=== PATIENT | male | born 1975 | race African-American/Black ===

== ENCOUNTER 2020-01-03 08:34 | Outpatient (REF) | payer OTHER, SELFPAY ==
[2020-01-03 15:09] LABS: Prostate Specific Antigen 2.33 ng/mL (<0.05-4.0)
== END 2020-01-03 08:35 | disposition home or self-care (01) ==
LOC: HO.10HDL 08:34
PROVIDERS: PCP Internal Medicine; Visit Provider Urology
DX: N40.1 Benign prostatic hyperplasia with lower urinary tract symptoms (principal); N13.8 Other obstructive and reflux uropathy; N39.41 Urge incontinence; R31.29 Other microscopic hematuria
CPT/HCPCS: 84153; 88112